=== PATIENT | male | born 2005 ===

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

== ENCOUNTER → 2024-10-13 17:05 | Outpatient (CLI) | payer OTHER, SELFPAY | LOC: LAB 10-29 09:29 | PROVIDERS: PCP Pediatrics; Referring Provider Pediatrics; Visit Provider Pediatrics | DX: R10.9 Unspecified abdominal pain (principal) | CPT/HCPCS: 87045; 87177 ==

== ENCOUNTER → 2024-10-22 12:44 | Outpatient (CLI) | payer OTHER, SELFPAY ==
[2024-10-22 20:32] LABS: HIV 1 & 2 Ab/Ag 4th Gen Combo NEGATIVE (NEGATIVE)
[2024-10-22 21:11] LABS: Urine N gonorrhoeae NOT DETECTED
[2024-10-22 21:23] LABS: Urine Chlamydia NOT DETECTED
[2024-10-24 00:07] LABS: HBsAg Screen Negative (Negative); HSV 1 IGG AB Non Reactive (Non Reactive); HSV 2 IGG AB Non Reactive (Non Reactive); Hepatitis A Antibody IgM Negative (Negative); Hepatitis B Core Antibody IgM Negative (Negative); Hepatitis C Antibody Non Reactive (Non Reactive)
== END ==
PROVIDERS: PCP Pediatrics; Visit Provider Pediatrics
DX: Z20.2 Contact with and (suspected) exposure to infections with a predominantly sexual mode of transmission (principal)
CPT/HCPCS: 80074; 86695; 86696; 86780; 87389; 87491; 87591